=== PATIENT | male | born 1940 | race Caucasian/White ===

== ENCOUNTER 2018-02-03 17:25 | Emergency (ER) | payer MEDICARE, OTHER ==
[~2018-02-03] VITALS: Ht 177.8 cm; Wt 112.3 kg
[~2018-02-03 17:25] MED LIST: ATOR10TA87 PO; CELE-193 PO; CIP500T PO; CLOP75TA35 PO; COR3.125T PO; FLO0.4C PO; NORCO10T PO; ZES2.5T PO
[2018-02-03] MEDS ORDERED: aspirin 81mg tab.chew PO ONE (17:35)
[2018-02-03 17:49] LABS: BASOPHILS % (AUTO) 0.4 % (0-1); EOSINOPHILS # (AUTO) 0.3 X10'3 (0-0.9); EOSINOPHILS % (AUTO) 3.2 % (0-6); HEMATOCRIT 37.7 % (42.0-52.0); HEMOGLOBIN 12.9 g/dl (14.0-17.9); LYMPHOCYTES % (AUTO) 11.8 % (21-51); MEAN CORPUSCULAR HEMOGLOBIN 29.3 PG (27.0-31.0); MEAN CORPUSCULAR HGB CONC 34.1 % (33.0-36.5); MEAN CORPUSCULAR VOLUME 85.9 FL (78-98); MEAN PLATELET VOLUME 7.5 FL (7.4-10.4); MONOCYTES # (AUTO) 0.6 X10'3 (0-0.9); MONOCYTES % (AUTO) 6.3 % (2-12); NEUTROPHILS # (AUTO) 6.8 X10'3 (1.8-7.7); NEUTROPHILS % (AUTO) 78.3 % (42-75); PLATELET COUNT 270 X10'3 (140-440); RED BLOOD COUNT 4.39 X10'6 (4.70-6.10); RED CELL DISTRIBUTION WIDTH 14.8 % (11.5-14.5); WHITE BLOOD COUNT 8.7 X10'3 (4.5-11.0)
[2018-02-03 18:12] LABS: ALANINE AMINOTRANSFERASE 28 U/L (12-78); ALBUMIN 3.2 G/DL (3.4-5.0); ALBUMIN/GLOBULIN RATIO 0.9 (1.1-1.5); ALKALINE PHOSPHATASE 65 IU/L (46-116); ANION GAP 12 (8-16); ASPARTATE AMINO TRANSFERASE 20 U/L (10-37); BILIRUBIN,TOTAL 0.3 MG/DL (0.1-1.0); BLOOD UREA NITROGEN 24 MG/DL (7-18); BUN/CREATININE RATIO 20.9 (5.4-32.0); CALCIUM 8.4 MG/DL (8.5-10.1); CHLORIDE 108 MMOL/L (99-107); CREATININE 1.15 MG/DL (0.60-1.10); GLUCOSE 104 MG/DL (70-104); POTASSIUM 4.1 MMOL/L (3.5-5.1); SODIUM 142 MMOL/L (135-145); TOTAL CARBON DIOXIDE 21.9 MMOL/L (24-32); TOTAL PROTEIN 6.6 G/DL (6.4-8.2); eGFR 62 ML/MIN
[2018-02-03 20:20] VITALS: BP 157/75
[2018-02-07] MEDS ORDERED: LISI-600 PO (12:47)
[2018-02-07] MEDS ORDERED: ATOR10TA87 PO (12:47)
[2018-02-07] MEDS ORDERED: CLOP75TA15 PO (12:47)
[2018-02-07] MEDS ORDERED: ASPI81TA52 PO (12:49)
[2018-02-07] MEDS ORDERED: NITR0.4T51 SL (12:49)
== END 2018-02-03 22:32 | disposition home or self-care (01) ==
LOC: ER 17:25
DX: I25.110 Atherosclerotic heart disease of native coronary artery with unstable angina pectoris (principal); I10 Essential (primary) hypertension; I25.2 Old myocardial infarction; R10.9 Unspecified abdominal pain; Z79.899 Other long term (current) drug therapy
CPT/HCPCS: 36415; 71045; 74018; 80053; 83735; 83880; 84484; 85025; 93005; 99285

== ENCOUNTER 2018-04-25 09:27 | Inpatient (IN) | payer OTHER ==
[2018-04-19 11:22] LABS: BASOPHILS % (AUTO) 0.5 % (0-1); EOSINOPHILS # (AUTO) 0.2 X10'3 (0-0.9); LYMPHOCYTES # (AUTO) 1.2 X10'3 (1.1-4.8); LYMPHOCYTES % (AUTO) 19.9 % (21-51); MEAN CORPUSCULAR HEMOGLOBIN 29.5 PG (27.0-31.0); MEAN CORPUSCULAR VOLUME 86.8 FL (78-98); MEAN PLATELET VOLUME 8.1 FL (7.4-10.4); MONOCYTES # (AUTO) 0.5 X10'3 (0-0.9); MONOCYTES % (AUTO) 8.3 % (2-12); NEUTROPHILS # (AUTO) 4.1 X10'3 (1.8-7.7); NEUTROPHILS % (AUTO) 68.3 % (42-75); PRE OP HEMATOCRIT 39.5 % (42.0-52.0); PRE OP HEMOGLOBIN 13.4 g/dL (14.0-17.9); PRE OP PLATELET COUNT 241 X10'3 (140-440); RED BLOOD COUNT 4.55 X10'6 (4.70-6.10); RED CELL DISTRIBUTION WIDTH 15.5 % (11.5-14.5)
[2018-04-19 11:32] LABS: HEMOGLOBIN A1C 6.4 % (4.5-6.2)
[2018-04-19 11:38] LABS: ALBUMIN 3.3 G/DL (3.4-5.0); ALBUMIN/GLOBULIN RATIO 0.9 (1.1-1.5); ALKALINE PHOSPHATASE 69 IU/L (46-116); BLOOD UREA NITROGEN 16 MG/DL (7-18); BUN/CREATININE RATIO 16.7 (5.4-32.0); CALCIUM 8.8 MG/DL (8.5-10.1); CHLORIDE 106 MMOL/L (99-107); CREATININE 0.96 MG/DL (0.60-1.10); PRE OP ALT 21 U/L (30-65); PRE OP ANION GAP 8 (8-16); PRE OP AST 16 U/L (10-37); PRE OP BILIRUB, TOTAL 0.4 MG/DL (0.0-1.0); PRE OP GLUCOSE 105 MG/DL (70-104); PRE OP SODIUM 140 MMOL/L (135-145); TOTAL CARBON DIOXIDE 26.1 MMOL/L (24-32); TOTAL PROTEIN 7.1 G/DL (6.4-8.2); eGFR 76 ML/MIN
[2018-04-25] VITALS (23 sets, daily range): BP systolic 118–155; BP diastolic 65–98
[~2018-04-25] VITALS: Ht 177.8 cm; Wt 106.1 kg
[~2018-04-25 09:27] MED LIST changes: -ATOR10TA87 PO; -CELE-193 PO; -CIP500T PO; -CLOP75TA35 PO; -COR3.125T PO; +Cefazolin 2GM/50ML dext iso,osmotic IVPB IV ONE; +LISI1TAB13 PO; +METF500T6 PO; -NORCO10T PO; -ZES2.5T PO; +acetaminophen 325mg tablet PO ONE; +famotidine 20mg tablet PO ONE; +gabapentin 300mg capsule PO ONE; +metoclopramide 5 mg/ml inj IV ONE; +oxyCODONE SR 10mg (sust. release) tab PO ONE; +ringers solution, lacted 1,000 ML IV SCH; +tranexamic acid inj. 1,000 MG in normal saline 100ml IV soln 90 ML IV ONE; +vancomycin inj 1,500 MG in normal saline 300ml IV soln IV ONE
[2018-04-25] MEDS ORDERED: morphine 10mg/ml inj. ONE (11:58)
[2018-04-25] MEDS ORDERED: ketorolac trometh. 30mg/ml inj. ONE (11:58)
[2018-04-25] MEDS ORDERED: vancomycin 1,000mg inj ONE (11:58)
[2018-04-25] MEDS ORDERED: Thrombin (Bovine) 5,000 unit vial TP ONE (11:59)
[2018-04-25] MEDS ORDERED: ROPIVAcaine 0.5% (5mg/ml) 30ml vial ONE (11:59)
[2018-04-25] MEDS ORDERED: ceFAZolin 1000mg inj ONE (11:59)
[2018-04-25] MEDS ORDERED: diphenhydrAMINE 50 mg/ml inj ONE ×2 (12:03→14:52)
[2018-04-25] MEDS ORDERED: tetracaine 1% (10mg/ml) pres. free inj. ONE (12:08)
[2018-04-25] MEDS ORDERED: BUPIVAcaine/PF 7.5mg/ml (0.75%) 10ml vial ONE (12:08)
[2018-04-25] MEDS ORDERED: fentaNYL/PF 50MCG/1 ML 2ML syringe ONE (12:10)
[2018-04-25] MEDS ORDERED: MIDAZolam 5mg/5ml vial ONE (12:10)
[2018-04-25] MEDS ORDERED: morphine sulfate /PF 0.5 MG/ML 10mL ampul ONE (12:12)
[2018-04-25] MEDS ORDERED: calcium chloride 100 MG/1 ML inj IV ONE (12:50)
[2018-04-25] MEDS ORDERED: propofol inj 20 ML IV ONE (12:58)
[2018-04-25] MEDS ORDERED: LIDOcaine 1%/PF 5ML 10 MG/ML VIAL ONE (12:58)
[2018-04-25] MEDS: potassium cl 20mEq in 1/2 NS 1,000 ML IV SCH ×2 (14:48→21:04)
[2018-04-25] MEDS ORDERED: ondansetron/PF 4mg/2ml inj IV PRN ×3 (14:50→16:00)
[2018-04-25] MEDS ORDERED: HYDROmorphone 1 mg/ml syringe IV PRN ×4 (14:50→16:10)
[2018-04-25] MEDS ORDERED: diphenhydrAMINE 25mg capsule PO PRN ×2 (14:50)
[2018-04-25] MEDS ORDERED: magnesium hydroxide 30ml (MOM) UD suspension PO PRN (14:50)
[2018-04-25] MEDS ORDERED: acetaminophen 325mg tablet PO PRN (14:50)
[2018-04-25] MEDS ORDERED: bisacodyl 10mg suppository rectal RC PRN (14:50)
[2018-04-25] MEDS ORDERED: oxyCODONE IR 5mg (immed. release) tablet PO PRN ×2 (14:50)
[2018-04-25] MEDS ORDERED: albuterol 2.5 MG/3 ML nebule NEB ONE (15:35)
[2018-04-25] MEDS ORDERED: ringers solution, lacted 1,000 ML IV SCH (15:59)
[2018-04-25] MEDS ORDERED: naloxone 2mg/2ml inj 2 MG in normal saline 500ml IV soln 500 ML IV PRN (15:59)
[2018-04-25] MEDS ORDERED: morphine 4 MG/ML inj SYRINge IV PRN (16:00)
[2018-04-25] MEDS ORDERED: HYDROmorphone inj. 0.5 MG/0.5 ML DISP.SYRIN IV PRN ×2 (16:00)
[2018-04-25] MEDS ORDERED: diphenhydrAMINE 50 mg/ml inj IV PRN (16:00)
[2018-04-25] MEDS ORDERED: ceFAZolin 1GM/D5W- ADD-VANTAGE 50 ML IV SCH (16:00)
[2018-04-25] MEDS ORDERED: tranexamic acid inj. 1,060 MG in normal saline 100ml IV soln 100 ML IV ONE (18:00)
[2018-04-25] MEDS ORDERED: vancomycin/NS 1 GM ADD-VANTAGE 250 ML IV SCH (20:00)
[2018-04-25] MEDS ORDERED: acetaminophen 325mg tablet PO SCH (20:00)
[2018-04-25] MEDS: gabapentin 300mg capsule PO SCH (20:44)
[2018-04-25] MEDS ORDERED: sennosides 8.6mg tablet PO SCH (21:00)
[2018-04-25] MEDS: metFORMIN 500mg tablet PO SCH (21:04)
[2018-04-26] VITALS (11 sets, daily range): BP systolic 116–136; BP diastolic 56–86
[2018-04-26] MEDS ORDERED: aspirin 81mg tab.chew PO ONE (04:45)
[2018-04-26] MEDS ORDERED: aspirin 325mg tablet ONE (04:49)
[2018-04-26] MEDS: potassium cl 20mEq in 1/2 NS 1,000 ML IV SCH (05:34)
[2018-04-26 05:38] LABS: BASOPHILS % (AUTO) 0.2 % (0-1); EOSINOPHILS # (AUTO) 0.1 X10'3 (0-0.9); EOSINOPHILS % (AUTO) 1.1 % (0-6); HEMATOCRIT 33.2 % (42.0-52.0); LYMPHOCYTES # (AUTO) 0.5 X10'3 (1.1-4.8); MEAN CORPUSCULAR HEMOGLOBIN 29.2 PG (27.0-31.0); MEAN CORPUSCULAR HGB CONC 33.2 % (33.0-36.5); MEAN PLATELET VOLUME 8.6 FL (7.4-10.4); MONOCYTES # (AUTO) 0.7 X10'3 (0-0.9); MONOCYTES % (AUTO) 7.2 % (2-12); NEUTROPHILS # (AUTO) 7.8 X10'3 (1.8-7.7); NEUTROPHILS % (AUTO) 85.5 % (42-75); PLATELET COUNT 215 X10'3 (140-440); RED BLOOD COUNT 3.77 X10'6 (4.70-6.10); RED CELL DISTRIBUTION WIDTH 15.4 % (11.5-14.5); WHITE BLOOD COUNT 9.2 X10'3 (4.5-11.0)
[2018-04-26 06:04] LABS: ANION GAP 7 (8-16); CHLORIDE 105 MMOL/L (99-107); CHOL/HDL RATIO 6.2 (0.00-4.99); CHOLESTEROL 236 MG/DL (0-200); HDL CHOLESTEROL 38 MG/DL (35-60); LDL CHOLESTEROL 169 MG/DL (50-100); POTASSIUM 5.3 MMOL/L (3.5-5.1); SODIUM 136 MMOL/L (135-145); TOTAL CARBON DIOXIDE 24.4 MMOL/L (24-32); TRIGLYCERIDES 146 MG/DL (20-135)
[2018-04-26] MEDS ORDERED: ASPI-1265 PO (06:50)
[2018-04-26] MEDS ORDERED: clopidogrel 75mg tablet PO SCH (08:00)
[2018-04-26] MEDS ORDERED: tamsulosin 0.4mg capsule PO SCH (08:00)
[2018-04-26] MEDS ORDERED: lisinopril 20mg tablet PO SCH (08:00)
[2018-04-26] MEDS ORDERED: ceFAZolin 1GM/D5W- ADD-VANTAGE 50 ML IV SCH ×3 (08:00→21:00)
[2018-04-26] MEDS ORDERED: atorvastatin 20mg tablet PO SCH (08:00)
[2018-04-26] MEDS ORDERED: aspirin 81mg tab.chew PO SCH (08:00)
[2018-04-26] MEDS ORDERED: enoxaparin 40mg/0.4ml syringe SQ SCH (08:00)
[2018-04-26] MEDS ORDERED: HYDROchlorothiazide 25mg tablet PO SCH (08:00)
[2018-04-26] MEDS: gabapentin 300mg capsule PO SCH ×2 (08:20→13:55)
[2018-04-26] MEDS ORDERED: ceFAZolin 1GM/D5W- ADD-VANTAGE 50 ML IV ONE (08:25)
[2018-04-26] MEDS: sodium chloride 0.45% 1,000 ML IV SCH ×2 (08:25→15:10)
[2018-04-26] MEDS: metFORMIN 500mg tablet PO SCH ×3 (08:27→18:28)
[2018-04-26] MEDS ORDERED: HCTZ25T PO (19:01)
[2018-04-26] MEDS ORDERED: ATOR20TA66 PO (19:01)
[2018-04-26] MEDS ORDERED: GABA300C PO (19:01)
[2018-04-26] MEDS ORDERED: CELE100C98 PO (19:01)
[2018-04-26] MEDS ORDERED: CLOP75TA35 PO (19:01)
[2018-04-26] MEDS ORDERED: celeCOXIB 100mg capsule PO SCH (20:00)
[2018-04-27] MEDS ORDERED: acetaminophen 325mg tablet PO PRN (14:50)
== END 2018-04-26 20:01 | disposition home or self-care (01) | DRG 470 ==
LOC: PAS IN 09:27 → EDSTATUS 11:30 → ORTHO 4S 16:55
PROVIDERS: ADMIT Orthopaedic Surgery; ATTEND Orthopaedic Surgery
PROC: 3E0T3BZ Introduction of Anesthetic Agent into Peripheral Nerves and Plexi, Percutaneous Approach (ICD-10-PCS; 2018-04-25)
PROC: 0SRC069 Replacement of Right Knee Joint with Oxidized Zirconium on Polyethylene Synthetic Substitute, Cemented, Open Approach (ICD-10-PCS; principal; 2018-04-25 12:03)
DX: M17.11 Unilateral primary osteoarthritis, right knee (principal); D62 Acute posthemorrhagic anemia; G45.9 Transient cerebral ischemic attack, unspecified; G47.30 Sleep apnea, unspecified; E11.9 Type 2 diabetes mellitus without complications; M81.0 Age-related osteoporosis without current pathological fracture; I10 Essential (primary) hypertension; R20.2 Paresthesia of skin; N40.0 Benign prostatic hyperplasia without lower urinary tract symptoms; R09.02 Hypoxemia; G62.9 Polyneuropathy, unspecified; F17.210 Nicotine dependence, cigarettes, uncomplicated; Z53.20 Procedure and treatment not carried out because of patient's decision for unspecified reasons; Z79.899 Other long term (current) drug therapy; Z79.82 Long term (current) use of aspirin; Z79.84 Long term (current) use of oral hypoglycemic drugs
CPT/HCPCS: 0232T; 93306; Z7506; 36415; 70450; 80051; 80053; 80061; 82607; 82948; 83036; 85025; 87070; 93880; 97110; 97116; 97162; A6455; A7000; C1713; C1758; C1776; J0690; J1200; J1885; J2001; J2250; J2270; J2274; J2704; J2765; J2795; J3010; J3370; J3490; J7030; J7120

== ENCOUNTER 2019-05-31 11:47 | Emergency (ER) | payer MEDICARE, MEDICAID ==
[~2019-05-31] VITALS: Ht 177.8 cm; Wt 112.7 kg
[~2019-05-31 11:47] MED LIST changes: +ASPI-1265 PO; +ATOR20TA66 PO; +CELE100C98 PO; +CLOP75TA35 PO; -Cefazolin 2GM/50ML dext iso,osmotic IVPB IV ONE; +GABA300C PO; +HCTZ25T PO; -LISI1TAB13 PO; +LISI1TAB29 PO; +METF-950 PO; -METF500T6 PO; -acetaminophen 325mg tablet PO ONE; -famotidine 20mg tablet PO ONE; -gabapentin 300mg capsule PO ONE; -metoclopramide 5 mg/ml inj IV ONE; -oxyCODONE SR 10mg (sust. release) tab PO ONE; -ringers solution, lacted 1,000 ML IV SCH; -tranexamic acid inj. 1,000 MG in normal saline 100ml IV soln 90 ML IV ONE; -vancomycin inj 1,500 MG in normal saline 300ml IV soln IV ONE
[2019-05-31 12:28] LABS: BASOPHILS # (AUTO) 0.1 X10'3 (0-0.2); BASOPHILS % (AUTO) 0.9 % (0-1); EOSINOPHILS # (AUTO) 0.2 X10'3 (0-0.9); EOSINOPHILS % (AUTO) 2.8 % (0-6); HEMOGLOBIN 13.4 g/dl (14.0-17.9); LYMPHOCYTES # (AUTO) 1.4 X10'3 (1.1-4.8); LYMPHOCYTES % (AUTO) 18.6 % (21-51); MEAN CORPUSCULAR HEMOGLOBIN 29.2 PG (27.0-31.0); MEAN CORPUSCULAR HGB CONC 33.4 g/dL (33.0-36.5); MEAN CORPUSCULAR VOLUME 87.3 FL (78-98); MEAN PLATELET VOLUME 7.8 FL (7.4-10.4); MONOCYTES # (AUTO) 0.6 X10'3 (0-0.9); MONOCYTES % (AUTO) 7.3 % (2-12); NEUTROPHILS # (AUTO) 5.3 X10'3 (1.8-7.7); NEUTROPHILS % (AUTO) 70.4 % (42-75); PLATELET COUNT 305 X10'3 (140-440); RED BLOOD COUNT 4.58 X10'6 (4.70-6.10); RED CELL DISTRIBUTION WIDTH 14.3 % (11.5-14.5); WHITE BLOOD COUNT 7.5 X10'3 (4.5-11.0)
[2019-05-31 12:38] LABS: PARTIAL THROMBOPLASTIN TIME 30 SECONDS (22-32)
[2019-05-31 12:44] LABS: GLUCOSE 135 MG/DL (70-104)
[2019-05-31 12:45] LABS: ALANINE AMINOTRANSFERASE 22 U/L (12-78); ALBUMIN 3.4 G/DL (3.4-5.0); ALBUMIN/GLOBULIN RATIO 0.9 (1.1-1.5); ALKALINE PHOSPHATASE 68 IU/L (46-116); ANION GAP 7 (8-16); ASPARTATE AMINO TRANSFERASE 13 U/L (10-37); BILIRUBIN,TOTAL 0.2 MG/DL (0.1-1.0); BLOOD UREA NITROGEN 26 MG/DL (7-18); BUN/CREATININE RATIO 14.7 (5.4-32.0); CALCIUM 9.1 MG/DL (8.5-10.1); CHLORIDE 106 MMOL/L (99-107); CREATININE 1.77 MG/DL (0.60-1.10); SODIUM 138 MMOL/L (135-145); TOTAL CARBON DIOXIDE 25.3 MMOL/L (24-32); TOTAL PROTEIN 7.3 G/DL (6.4-8.2); eGFR 37 ML/MIN
[2019-05-31] MEDS ORDERED: HYDR-3686 PO (14:02)
[2019-05-31] MEDS ORDERED: predniSONE 20 mg tablet PO ONE (14:05)
[2019-05-31] MEDS ORDERED: PRED20TA PO (14:06)
[2019-05-31 14:13] VITALS: BP 136/78
== END 2019-05-31 14:15 | disposition home or self-care (01) ==
LOC: ER 11:47
DX: L29.9 Pruritus, unspecified (principal); R42 Dizziness and giddiness; I25.10 Atherosclerotic heart disease of native coronary artery without angina pectoris; I10 Essential (primary) hypertension; I25.2 Old myocardial infarction; G47.30 Sleep apnea, unspecified; N40.0 Benign prostatic hyperplasia without lower urinary tract symptoms; Z98.890 Other specified postprocedural states; Z79.82 Long term (current) use of aspirin; Z79.84 Long term (current) use of oral hypoglycemic drugs; Z79.899 Other long term (current) drug therapy; Z79.01 Long term (current) use of anticoagulants
CPT/HCPCS: 36415; 71045; 80053; 84484; 85025; 85610; 85730; 93005; 99284; J7512

== ENCOUNTER 2019-07-29 12:55 | Emergency (ER) | payer MEDICARE, MEDICAID ==
[~2019-07-29] VITALS: Ht 177.8 cm; Wt 100.0 kg
[2019-07-29 14:07] LABS: BASOPHILS % (AUTO) 0.5 % (0-1); EOSINOPHILS # (AUTO) 0.3 X10'3 (0-0.9); EOSINOPHILS % (AUTO) 4.7 % (0-6); HEMATOCRIT 37.4 % (42.0-52.0); HEMOGLOBIN 12.4 g/dl (14.0-17.9); LYMPHOCYTES # (AUTO) 1.3 X10'3 (1.1-4.8); LYMPHOCYTES % (AUTO) 19.1 % (21-51); MEAN CORPUSCULAR HEMOGLOBIN 29.1 PG (27.0-31.0); MEAN CORPUSCULAR HGB CONC 33.1 g/dL (33.0-36.5); MEAN PLATELET VOLUME 8.5 FL (7.4-10.4); MONOCYTES # (AUTO) 0.7 X10'3 (0-0.9); NEUTROPHILS # (AUTO) 4.3 X10'3 (1.8-7.7); NEUTROPHILS % (AUTO) 65.7 % (42-75); PLATELET COUNT 259 X10'3 (140-440); RED BLOOD COUNT 4.25 X10'6 (4.70-6.10); RED CELL DISTRIBUTION WIDTH 14.5 % (11.5-14.5); WHITE BLOOD COUNT 6.6 X10'3 (4.5-11.0)
[2019-07-29 14:19] LABS: PARTIAL THROMBOPLASTIN TIME 28 SECONDS (22-32)
[2019-07-29 14:20] LABS: ALANINE AMINOTRANSFERASE 19 U/L (12-78); ALBUMIN 3.2 G/DL (3.4-5.0); ALBUMIN/GLOBULIN RATIO 0.9 (1.1-1.5); ALKALINE PHOSPHATASE 59 IU/L (46-116); ANION GAP 9 (8-16); ASPARTATE AMINO TRANSFERASE 13 U/L (10-37); BILIRUBIN,TOTAL 0.3 MG/DL (0.1-1.0); BLOOD UREA NITROGEN 24 MG/DL (7-18); BUN/CREATININE RATIO 19.8 (5.4-32.0); CALCIUM 9.4 MG/DL (8.5-10.1); CHLORIDE 108 MMOL/L (99-107); CREATININE 1.21 MG/DL (0.60-1.10); GLUCOSE 91 MG/DL (70-104); POTASSIUM 4.3 MMOL/L (3.5-5.1); SODIUM 141 MMOL/L (135-145); TOTAL CARBON DIOXIDE 24.3 MMOL/L (24-32); TOTAL PROTEIN 6.8 G/DL (6.4-8.2); eGFR 58 ML/MIN
[2019-07-29] MEDS ORDERED: FURO-150 PO (15:19)
[2019-07-29] MEDS ORDERED: POTA10TA10 PO (15:19)
[2019-07-29 15:29] VITALS: BP 135/74
== END 2019-07-29 15:31 | disposition home or self-care (01) ==
LOC: ER 12:55
DX: I87.2 Venous insufficiency (chronic) (peripheral) (principal); J98.01 Acute bronchospasm; R42 Dizziness and giddiness; L29.9 Pruritus, unspecified; I25.10 Atherosclerotic heart disease of native coronary artery without angina pectoris; I10 Essential (primary) hypertension; I25.2 Old myocardial infarction; G47.30 Sleep apnea, unspecified; Z79.899 Other long term (current) drug therapy; Z79.82 Long term (current) use of aspirin; Z98.890 Other specified postprocedural states
CPT/HCPCS: 36415; 71045; 80053; 83880; 84484; 85025; 85610; 85730; 93005; 99284

== ENCOUNTER 2020-06-11 10:35 | Day surgery (SDC) | payer MEDICARE, MEDICAID ==
[~2020-06-11] VITALS: Ht 177.8 cm; Wt 104.5 kg
[2020-06-11 10:45] VITALS: BP 138/61
[2020-06-11] MEDS ORDERED: fentaNYL/PF 50MCG/1 ML 2ML syringe ONE (10:45)
[2020-06-11] MEDS ORDERED: MIDAZolam 5mg/5ml vial ONE (10:46)
[2020-06-11] MEDS ORDERED: ZOLP10TA PO (11:18)
[2020-06-11] MEDS ORDERED: ZOLP5TAB2 PO (11:18)
[2020-06-11] MEDS ORDERED: LOSA100T57 PO (11:19)
[2020-06-11] MEDS ORDERED: FINA5TAB11 PO (11:20)
[2020-06-11] MEDS ORDERED: FURO40TA4 PO (11:21)
[2020-06-11] MEDS ORDERED: DOCU100C33 PO (11:22)
[2020-06-11] MEDS ORDERED: FLUT100D2 INH (11:23)
[2020-06-11 11:35] VITALS: BP 147/70
[2020-06-11 11:45] VITALS: BP 138/78
[2020-06-11 11:55] VITALS: BP 122/71
== END 2020-06-11 12:14 | disposition home or self-care (01) ==
LOC: GI LAB 10:35
PROVIDERS: ATTEND Internal Medicine Gastroenterology
DX: Z12.11 Encounter for screening for malignant neoplasm of colon (principal); K51.40 Inflammatory polyps of colon without complications; K62.1 Rectal polyp; K64.8 Other hemorrhoids
CPT/HCPCS: 45380; 45385; C1773; G0500; J2250; J3010; J7040; 99152; A4620

== ENCOUNTER 2022-02-23 15:38 | Outpatient (CLI) | payer MEDICARE, MEDICAID ==
[~2022-02-23 15:38] MED LIST changes: +AMLO5TAB16 PO; +APIX5TAB3 PO; +ATOR10TA70 PO; -ATOR20TA66 PO; -CELE100C98 PO; -CLOP75TA35 PO; +FINA5TAB12 PO; +FLUT16SP2 BOTHNARES; -GABA300C PO; -HCTZ25T PO; -LISI1TAB29 PO; +LOSA100T57 PO; +METF-900 PO; -METF-950 PO; +UMEC1DIS INH; +ZOLP10TA PO
[2022-02-23 16:13] LABS: TOTAL HEMOGLOBIN 12.1 G/dl (14.0-18.0)
== END 2022-02-23 23:59 | disposition home or self-care (01) ==
LOC: RT 15:38
PROVIDERS: ATTEND Nurse Practitioner Primary Care
DX: J44.9 Chronic obstructive pulmonary disease, unspecified (principal); R05.9 Cough, unspecified
CPT/HCPCS: 85018; 94010; 94727; 94729

== ENCOUNTER 2022-11-15 12:43 | Emergency (ER) | payer MEDICARE, MEDICAID ==
[~2022-11-15] VITALS: Ht 177.8 cm; Wt 102.0 kg
[2022-11-15 12:52] VITALS: BP 157/80
[2022-11-15] MEDS ORDERED: PRED10TA23 PO (14:23)
== END 2022-11-15 14:39 | disposition home or self-care (01) ==
LOC: ER 12:43
DX: L30.9 Dermatitis, unspecified (principal); I10 Essential (primary) hypertension
CPT/HCPCS: 99283

== ENCOUNTER 2023-04-10 11:53 | Emergency (ER) | payer MEDICARE, MEDICAID ==
[~2023-04-10] VITALS: Ht 172.7 cm; Wt 90.0 kg
[~2023-04-10 11:53] MED LIST changes: -LOSA100T57 PO; +LOSA100T58 PO
[2023-04-10 12:46] LABS: CLARITY,URINE CLEAR (Clear); COLOR,URINE YELLOW (Yellow); GLUCOSE, URINE NEGATIVE (Neg); KETONES,URINE NEGATIVE (Neg); LEUKOCYTE ESTERASE ,URINE NEGATIVE (Neg); NITRITES, URINE NEGATIVE (Neg); OCCULT BLOOD,URINE TRACE-INTACT (Neg); PROTEIN,URINE >=300 mg/dl (Neg); UROBILINOGEN,URINE 0.2 E.U/dL (0.2-1.0)
[2023-04-10 12:50] LABS: UA COLLECTION TYPE CLN CATCH MIDSTREAM
[2023-04-10 12:52] LABS: BACTERIA,URINE NONE SEEN /HPF (Neg); MUCUS STRANDS NONE SEEN /LPF (Neg); RBC,URINE 0-2 /HPF (0-2); SQUAMOUS EPITHELIAL CELL,UR FEW /LPF (FEW); WBC,URINE 0-4 /HPF (0-4)
[2023-04-10 13:19] LABS: BASOPHILS % (AUTO) 0.8 % (0-1); EOSINOPHILS # (AUTO) 0.1 X10'3 (0-0.9); EOSINOPHILS % (AUTO) 2.1 % (0-6); HEMOGLOBIN 10.5 g/dl (14.0-17.9); LYMPHOCYTES # (AUTO) 0.7 X10'3 (1.1-4.8); MEAN CORPUSCULAR HEMOGLOBIN 28.5 PG (27.0-31.0); MEAN CORPUSCULAR HGB CONC 32.9 g/dL (33.0-36.5); MEAN CORPUSCULAR VOLUME 86.6 FL (78-98); MEAN PLATELET VOLUME 8.1 FL (7.4-10.4); MONOCYTES # (AUTO) 0.6 X10'3 (0-0.9); MONOCYTES % (AUTO) 10.3 % (2-12); NEUTROPHILS # (AUTO) 4.5 X10'3 (1.8-7.7); NEUTROPHILS % (AUTO) 75.8 % (42-75); PLATELET COUNT 244 X10'3 (140-440); RED BLOOD COUNT 3.69 X10'6 (4.70-6.10); RED CELL DISTRIBUTION WIDTH 16.7 % (11.5-14.5)
[2023-04-10 13:36] LABS: ALANINE AMINOTRANSFERASE 35 U/L (12-78); ALBUMIN 3.2 G/DL (3.4-5.0); ALBUMIN/GLOBULIN RATIO 0.9 (1.1-1.5); ALKALINE PHOSPHATASE 128 IU/L (46-116); ANION GAP 14 (8-16); ASPARTATE AMINO TRANSFERASE 25 U/L (10-37); BILIRUBIN,TOTAL 0.7 MG/DL (0.1-1.0); BLOOD UREA NITROGEN 37 MG/DL (7-18); BUN/CREATININE RATIO 17.7 (10.0-20.0); CALCIUM 8.9 MG/DL (8.5-10.1); CHLORIDE 106 MMOL/L (99-107); CREATININE 2.09 MG/DL (0.60-1.10); GLUCOSE 114 MG/DL (70-104); POTASSIUM 4.8 MMOL/L (3.5-5.1); SODIUM 142 MMOL/L (135-145); TOTAL CARBON DIOXIDE 22.5 MMOL/L (24-32); TOTAL PROTEIN 6.6 G/DL (6.4-8.2); eGFR 31 ML/MIN
[2023-04-10 13:41] LABS: LIPASE 130 U/L (73-393)
--- NOTE | 2023-04-10 16:18 | NUR ---
GAIT TEST WITH SPO2 SENSOR PERFORMED X2 LAPS AROUND NURSING STATION, SPO2 BETWEEN [phone] PERCENT. PT DOES NOT COMPLAIN OF SOB STATES THAT HE IS ONLY SOB WHEN HE SMOKES CIGARETTES AND THAT HE INTENDS TO QUIT
[2023-04-10 16:53] VITALS: BP 151/97
[2023-04-11] MEDS ORDERED: FURO40TA4 PO (12:53)
[2023-04-11] MEDS ORDERED: OXYB-58 PO (12:53)
== END 2023-04-10 16:55 | disposition home or self-care (01) ==
LOC: ER 11:53
DX: J90 Pleural effusion, not elsewhere classified (principal); R10.30 Lower abdominal pain, unspecified; R06.02 Shortness of breath; I10 Essential (primary) hypertension; K40.90 Unilateral inguinal hernia, without obstruction or gangrene, not specified as recurrent
CPT/HCPCS: 36415; 71045; 71250; 74176; 80053; 81001; 83690; 84484; 85025; 93005; 99285

== ENCOUNTER 2023-04-11 12:04 | Day surgery (SDC) | payer MEDICARE, MEDICAID ==
[~2023-04-11] VITALS: Ht 177.8 cm; Wt 98.6 kg
[~2023-04-11 12:04] MED LIST changes: +LIDOcaine 1% 30ml preserv. free vial SQ ONE
[2023-04-11 12:30] VITALS: BP 128/72
[2023-04-11] MEDS ORDERED: OXYB-58 PO (12:53)
[2023-04-11] MEDS ORDERED: FURO40TA4 PO (12:53)
[2023-04-11] MEDS ORDERED: albumin 25% 100mL bottle x 1 IV PRN (13:00)
[2023-04-11 13:08] VITALS: BP 131/77
[2023-04-11 13:12] VITALS: BP 156/80
[2023-04-11 13:27] VITALS: BP 132/88
[2023-04-11 13:42] VITALS: BP 134/84
== END 2023-04-11 13:55 | disposition home or self-care (01) ==
LOC: SSTAY O 12:04
PROVIDERS: ATTEND Radiology Diagnostic Radiology
DX: J90 Pleural effusion, not elsewhere classified (principal); E78.00 Pure hypercholesterolemia, unspecified; I10 Essential (primary) hypertension; E11.9 Type 2 diabetes mellitus without complications; Z79.01 Long term (current) use of anticoagulants; Z79.84 Long term (current) use of oral hypoglycemic drugs; Z79.82 Long term (current) use of aspirin; Z79.899 Other long term (current) drug therapy
CPT/HCPCS: 32555; C1729; J3490

== ENCOUNTER 2023-05-09 11:14 | Day surgery (SDC) | payer MEDICARE, MEDICAID ==
[2023-05-09] VITALS (11 sets, daily range): BP systolic 132–171; BP diastolic 72–134; PULSE 83–114; RESP 14–18; TEMP 98.7; O2SAT 93–99
[~2023-05-09 11:14] MED LIST changes: -AMLO5TAB16 PO; -APIX5TAB3 PO; -ATOR10TA70 PO; -FINA5TAB12 PO; -FLO0.4C PO; -FLUT16SP2 BOTHNARES; +FURO40TA4 PO; -LIDOcaine 1% 30ml preserv. free vial SQ ONE; -LOSA100T58 PO; +OXYB-58 PO
[2023-05-09] MEDS ORDERED: LOSA100T58 PO (11:42)
[2023-05-09 12:10] LABS: BASOPHILS % (AUTO) 0.7 % (0-1); EOSINOPHILS # (AUTO) 0.1 X10'3 (0-0.9); EOSINOPHILS % (AUTO) 1.9 % (0-6); HEMOGLOBIN 10.9 g/dl (14.0-17.9); LYMPHOCYTES # (AUTO) 0.7 X10'3 (1.1-4.8); LYMPHOCYTES % (AUTO) 12.5 % (21-51); MEAN CORPUSCULAR HEMOGLOBIN 28.1 PG (27.0-31.0); MEAN CORPUSCULAR VOLUME 87.8 FL (78-98); MEAN PLATELET VOLUME 8.2 FL (7.4-10.4); MONOCYTES # (AUTO) 0.4 X10'3 (0-0.9); MONOCYTES % (AUTO) 7.6 % (2-12); NEUTROPHILS # (AUTO) 4.2 X10'3 (1.8-7.7); NEUTROPHILS % (AUTO) 77.3 % (42-75); PLATELET COUNT 233 X10'3 (140-440); RED BLOOD COUNT 3.88 X10'6 (4.70-6.10); WHITE BLOOD COUNT 5.4 X10'3 (4.5-11.0)
[2023-05-09] MEDS ORDERED: LIDOcaine 1% 30ml preserv. free vial SQ STA (12:40)
== END 2023-05-09 16:15 | disposition home or self-care (01) ==
LOC: SSTAY O 11:14
PROVIDERS: ATTEND Radiology Diagnostic Radiology
DX: D49.511 Neoplasm of unspecified behavior of right kidney (principal); E11.22 Type 2 diabetes mellitus with diabetic chronic kidney disease; I13.0 Hypertensive heart and chronic kidney disease with heart failure and stage 1 through stage 4 chronic kidney disease, or unspecified chronic kidney disease; N18.9 Chronic kidney disease, unspecified; I50.9 Heart failure, unspecified; I25.10 Atherosclerotic heart disease of native coronary artery without angina pectoris; E78.2 Mixed hyperlipidemia; I48.91 Unspecified atrial fibrillation; I25.2 Old myocardial infarction; G47.30 Sleep apnea, unspecified; E66.9 Obesity, unspecified; Z68.31 Body mass index [BMI] 31.0-31.9, adult; Z86.73 Personal history of transient ischemic attack (TIA), and cerebral infarction without residual deficits; Z79.899 Other long term (current) drug therapy; Z79.84 Long term (current) use of oral hypoglycemic drugs; F17.210 Nicotine dependence, cigarettes, uncomplicated; Z72.89 Other problems related to lifestyle
CPT/HCPCS: 36415; 50200; 76942; 82948; 85025; 85610; J7030; 88305